=== PATIENT | female | born 1970 | race Caucasian/White ===

== ENCOUNTER 2021-07-21 10:47 | Emergency (ER) | payer MEDICAID ==
[~2021-07-21] VITALS: Ht 167.6 cm; Wt 72.1 kg
[2021-07-21 10:55] VITALS: BP_SYST 142
--- NOTE | 2021-07-21 10:55 | NUR ---
Pt to bed 3 for evaluation.
--- NOTE | 2021-07-21 11:03 | NUR ---
PT COMES TO ER WITH C/O FACIAL SWELLING/REDNESS THAT HAS BEEN WORSEING IN THE LAST 7 DAYS SECONDARY TO APPLYING RETINOL ON HERFACE FOR ANTI-AGING. PT DULCE ANY SOB /CP. DENIES ANY FEVERS/CHILLS. MILD REDNESS AND PADMINI LOWER EYELID SWELLING NOTED.
[2021-07-21] MEDS ORDERED: BEN50 PO (11:04)
--- NOTE | 2021-07-21 11:05 | NUR ---
DR BYRD IN ROOM FOR EXAM.
--- NOTE | 2021-07-21 11:32 | NUR ---
Patient given written and verbal discharge instructions and verbalizes understanding. ER MD discussed with patient the results and treatment provided. Patient in stable condition. ID arm band removed. Rx of BENADRYL given. Patient educated on pain management and to follow up with PMD. Pain Scale . Opportunity for questions provided and answered. Medication side effect fact sheet provided.
== END 2021-07-21 11:32 | disposition home or self-care (01) ==
LOC: SED 10:47
DX: L25.9 Unspecified contact dermatitis, unspecified cause (principal); F41.9 Anxiety disorder, unspecified; Z88.0 Allergy status to penicillin; Z79.899 Other long term (current) drug therapy
CPT/HCPCS: 99282

== ENCOUNTER 2021-10-24 13:32 | Emergency (ER) | payer MEDICAID, SELFPAY ==
[~2021-10-24] VITALS: Ht 170.2 cm; Wt 69.9 kg
[~2021-10-24 13:32] MED LIST: BEN50 PO
[2021-10-24 15:46] VITALS: BP_SYST 160
[2021-10-24 16:54] LABS: BASOPHILS % (AUTO) 0.2 % (0.0-2.0); EOSINOPHILS # (AUTO) 0.1 K/uL (0.0-0.4); EOSINOPHILS % (AUTO) 1.2 % (0.0-4.0); HEMATOCRIT 38.8 % (36-48); HEMOGLOBIN 13.1 g/dL (12.0-16.0); MEAN CORPUSCULAR HEMOGLOBIN 26 pg (27-31); MEAN CORPUSCULAR HGB CONC 34 % (32-36); MEAN CORPUSCULAR VOLUME 77 fL (79.0-98.0); MONOCYTES % (AUTO) 9.9 % (1.7-9.3); NEUTROPHILS # (AUTO) 7.2 K/uL (1.8-7.7); NEUTROPHILS % (AUTO) 69.7 % (40.0-70.0); PLATELET COUNT (AUTO) 340 K/uL (130-430); RED BLOOD CELL COUNT(AUTO) 5.03 MIL/uL (4.2-6.2); RED CELL DISTRIBUTION WIDTH 14.3 % (9.0-15.0); WHITE BLOOD COUNT (AUTO) 10.4 K/uL (4.8-10.8)
[2021-10-24 17:12] LABS: CALCIUM 9.2 mg/dL (8.4-11.0); POTASSIUM 4.1 mmol/L (3.5-5.1)
[2021-10-24 17:18] LABS: TOTAL BILIRUBIN 0.3 mg/dL (0.0-1.0)
[2021-10-24] MEDS ORDERED: MECL-225 PO (17:46)
[2021-10-24] MEDS ORDERED: PSEU30TA36 PO (17:46)
[2021-10-24 18:12] VITALS: BP_SYST 132
[2021-10-24] MEDS ORDERED: CEPH250C PO (18:13)
== END 2021-10-24 18:12 | disposition home or self-care (01) ==
LOC: SED 13:32
DX: R42 Dizziness and giddiness (principal); Z88.0 Allergy status to penicillin; Z79.899 Other long term (current) drug therapy
CPT/HCPCS: 36415; 70450-TC; 76376; 80053; 81025; 85025; 93005; 99285